=== PATIENT | male | born 1975 | race Caucasian/White ===

== ENCOUNTER 2016-07-13 22:51 | Emergency (ER) | payer MEDICAID ==
[2016-07-13 23:03] VITALS: BP 136/78
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
--- OUTSIDE RECORDS SUMMARY | 2016-07-14 00:20 | XMS REPORT | Continuity of Care Document ---
:1975 Author Organization [email or web address] [place] [address] Care Team Providers Name Role Phone Damien Steele Primary Care Provider [phone] Source Comments This disclosure is being made pursuant to the [employer] program and maynot contain all information available regarding this patient.[email or web address] Active Allergies and Adverse Reactions Allergen Noted Date Severity Reactions Comments No Known Allergies 08/13/2014 Other (See Comments) Current Medications Be aware that medications may not be up to date as of this document. Alwaysverify current medications with the patient. Prescription Sig. Disp. Refills Start Date End Date Status lisinopril Take 10 mg by Active (PRINIVIL,ZESTRIL) 10 MG mouth daily. tablet Active Problems Problem Noted Date Aftercare following surgery of the musculoskeletal system, NEC 09/06/2014 Shoulder pain 08/26/2014 Rotator cuff tear 08/26/2014 Most Recent Encounters Date Type Specialty Providers Description 06/24/2016 Data Import Social History Tobacco Use Types Packs/Day Years Used Date Current Every Day Smoker Cigarettes Tobacco Cessation:Counseling Given: Yes Comments: Alcohol Use Drinks/Week oz/Week Comments Yes 12 Standard drinks or equivalent 6.0 Last Filed Vital Signs Vital Sign Reading Time Taken Blood Pressure 120/70 08/26/2014 1:12 PM CDT Pulse - - Temperature - - Respiratory Rate - - Height 1.778 m (5' 10") 08/26/2014 1:12 PM CDT Weight 70.308 kg (155 lb) 08/26/2014 1:12 PM CDT Body Mass Index 22.24 08/26/2014 1:12 PM CDT Oxygen Saturation - - Plan of Care Date Type Specialty Providers Description 07/22/2016 Appointment Orthopedic Surgery Health Maintenance Due Date Last Done Comments Tetanus/Pertussis (1 - Tdap) 08/08/1994 Influenza Immunization (#1) 2015 Results from Last 3 Months Not on file
== END 2016-07-14 01:08 | disposition home or self-care (01) ==
LOC: ER 22:51
PROC: 2W0 Placement, Anatomical Regions, Change (ICD-10-PCS; principal; 2016-07-13)
DX: S51.012D Laceration without foreign body of left elbow, subsequent encounter (principal); V89.2XXD Person injured in unspecified motor-vehicle accident, traffic, subsequent encounter